=== PATIENT | male | born 1950 | race Caucasian/White ===

== ENCOUNTER → 2018-02-23 | Outpatient (CLI) | payer MEDICARE | END | disposition home or self-care (01) | LOC: RAH 13:00 | PROVIDERS: ATTEND Internal Medicine | DX: R92.8 Other abnormal and inconclusive findings on diagnostic imaging of breast (principal); Z85.3 Personal history of malignant neoplasm of breast | CPT/HCPCS: 77066 ==

== ENCOUNTER 2019-12-04 19:43 | Inpatient (IN) | payer MEDICARE ==
[~2019-12-04] VITALS: Ht 152.4 cm; Wt 55.5 kg
[2019-12-04 21:08] LABS: BASOPHILS % (AUTO) 0.5 % (0.0-5.0); HEMATOCRIT 33.4 % (42-54); LYMPHOCYTES % (AUTO) 11.3 % (21.0-51.0); MEAN CORPUSCULAR HEMOGLOBIN 31.4 pg (27.0-33.0); MEAN CORPUSCULAR HGB CONC 33.2 g/dL (32.0-36.0); MEAN CORPUSCULAR VOLUME 94.6 fL (79-99); MONOCYTES % (AUTO) 13.7 % (3.0-13.0); NEUTROPHILS % (AUTO) 72.8 % (40.0-77.0); PLATELET COUNT (AUTO) 187 K/uL (130-400); RED BLOOD CELL COUNT(AUTO) 3.53 MIL/uL (4.50-6.20); RED CELL DISTRIBUTION WIDTH 15.1 % (11.0-15.5); WHITE BLOOD COUNT (AUTO) 4.2 K/uL (4.8-10.8)
[2019-12-04 21:21] LABS: ALBUMIN 3.7 g/dL (3.5-5.0); BILIRUBIN,TOTAL 0.5 mg/dL (0.2-1.0); CREATININE 1.7 mg/dL (0.5-1.5); CRP QUANTITATIVE 120.3 mg/L (0.00-9.0); POTASSIUM 3.8 mmol/L (3.5-5.1); TOTAL PROTEIN, SERUM 8.6 g/dL (6.0-8.3)
[2019-12-04 21:27] LABS: PARTIAL THROMBOPLASTIN TIME 29.7 SEC (26.3-35.5); PROTHROMBIN TIME 10.8 SEC (9.6-11.6)
[2019-12-04 22:04] LABS: FERRITIN 195 ng/mL (30-400)
[2019-12-04] MEDS ORDERED: PANTOPRAZOLE 40 MG/VIAL ONE (22:29)
[2019-12-04] MEDS ORDERED: SODIUM CHLORIDE 0.9% 100 ML IV ONE (22:32)
[2019-12-04] MEDS ORDERED: ERGOCALCIFEROL (VITAMIN D2) 50,000 UNIT CAPSULE PO ONE (23:30)
[2019-12-04] MEDS ORDERED: LACTATED RINGERS 1000ML 1,000 ML IV SCH (23:30)
[2019-12-04] MEDS ORDERED: NITROGLYCERIN 0.4 MG SL TAB SL PRN (23:30)
[2019-12-04] MEDS ORDERED: ONDANSETRON HCL 4 MG/2 ML VIAL IV PRN (23:30)
[2019-12-04] MEDS ORDERED: DIPHENHYDRAMINE HCL 25 MG CAPSULE PO PRN (23:30)
[2019-12-04] MEDS ORDERED: ACETAMINOPHEN 325 MG TAB PO PRN ×2 (23:30)
[2019-12-04] MEDS: SODIUM CHLORIDE 0.9% 1000ML 1,000 ML IV SCH (23:45)
[2019-12-05] MEDS ORDERED: ERGOCALCIFEROL (VITAMIN D2) 50,000 UNIT CAPSULE ONE (00:43)
[2019-12-05 02:10] LABS: FERRITIN 173 ng/mL (30-400)
[2019-12-05 05:38] LABS: APPEARANCE,URINE Clear (CLEAR); BILIRUBIN,URINE Negative (NEGATIVE); COLOR,URINE Yellow (YELLOW); GLUCOSE, URINE (UA) Negative (NEGATIVE); KETONES,URINE Trace mg/dL (NEGATIVE); LEUKOCYTE ESTERASE ,URINE Large (NEGATIVE); NITRATE,URINE Positive (NEGATIVE); OCCULT BLOOD,URINE Trace (NEGATIVE); PH,URINE 5.5 (5.0-8.0); PROTEIN,URINE POS 1+ mg/dL (NEGATIVE); UROBILINOGEN,URINE 0.2 mg/dL (0.2-1.0)
[2019-12-05 05:49] LABS: BACTERIA,URINE Moderate /HPF (None Seen); RENAL EPITHELIAL CELLS,URINE Rare /HPF (None Seen); SQUAMOUS EPITHELIAL CELL,UR 0-2 /HPF (0-2); TRANSITIONAL EPI CELLS,URINE Rare /HPF (None Seen); WBC,URINE 26-50 /HPF (0-1)
[2019-12-05 06:30] LABS: ALBUMIN 3.5 g/dL (3.5-5.0); BILIRUBIN,TOTAL 0.5 mg/dL (0.2-1.0); CREATININE 1.6 mg/dL (0.5-1.5); CRP QUANTITATIVE 110.1 mg/L (0.00-9.0); POTASSIUM 3.1 mmol/L (3.5-5.1); TOTAL PROTEIN, SERUM 8.2 g/dL (6.0-8.3)
[2019-12-05] MEDS ORDERED: ACETAMINOPHEN 325 MG TAB ONE (06:54)
[2019-12-05 08:41] LABS: BASOPHILS % (AUTO) 0.2 % (0.0-5.0); HEMATOCRIT 28.5 % (42-54); LYMPHOCYTES % (AUTO) 6.8 % (21.0-51.0); MEAN CORPUSCULAR HEMOGLOBIN 31.5 pg (27.0-33.0); MEAN CORPUSCULAR VOLUME 92.5 fL (79-99); MONOCYTES % (AUTO) 7.6 % (3.0-13.0); NEUTROPHILS % (AUTO) 84.8 % (40.0-77.0); PLATELET COUNT (AUTO) 165 K/uL (130-400); RED BLOOD CELL COUNT(AUTO) 3.08 MIL/uL (4.50-6.20); WHITE BLOOD COUNT (AUTO) 4.9 K/uL (4.8-10.8)
[2019-12-05] MEDS: HEPARIN SODIUM 5000UNIT/ML 1ML VIAL SQ SCH ×3 (09:00→20:02)
[2019-12-05] MEDS: ASCORBIC ACID 500 MG TAB PO SCH (09:00)
[2019-12-05] MEDS: PANTOPRAZOLE SODIUM 40 MG TABLET.DR PO SCH (09:00)
[2019-12-05] MEDS: ACETYLCYSTEINE 600 MG CAPSULE PO SCH ×2 (09:00→20:02)
[2019-12-05] MEDS: ZINC SULFATE 220 CAPSULE PO SCH (09:00)
[2019-12-05] MEDS ORDERED: TRAM50TA4 PO (09:17)
[2019-12-05] MEDS ORDERED: LEVO250T59 PO (09:17)
[2019-12-05] MEDS ORDERED: PREG150C PO ×2 (09:17→09:18)
[2019-12-05] MEDS ORDERED: AEC81 PO (09:17)
[2019-12-05] MEDS ORDERED: ROSU5TAB12 PO (09:17)
[2019-12-05] MEDS ORDERED: FAMO20TA8 PO (09:17)
[2019-12-05] MEDS ORDERED: LEVO75TA10 PO (09:17)
[2019-12-05] MEDS ORDERED: COLE5PAC3 PO (09:17)
[2019-12-05] MEDS ORDERED: NEBI5TAB8 PO (09:17)
[2019-12-05] MEDS ORDERED: TRAMADOL HCL 50 MG TABLET PO PRN (09:30)
[2019-12-05] MEDS ORDERED: LEVOTHYROXINE 75 MCG TABLET PO SCH (09:30)
[2019-12-05 10:40] LABS: HEMATOCRIT 28.5 % (42-54)
[2019-12-05] MEDS ORDERED: LEVOTHYROXINE 25 MCG TABLET ONE (10:40)
[2019-12-05] MEDS ORDERED: ACETYLCYSTEINE 600 MG CAPSULE ONE (13:37)
[2019-12-05] MEDS ORDERED: ASCORBIC ACID 500 MG TAB ONE (13:37)
[2019-12-05] MEDS ORDERED: HEPARIN SODIUM 5000UNIT/ML 1ML VIAL ONE (13:37)
[2019-12-05] MEDS ORDERED: ZINC SULFATE 220 CAPSULE ONE (13:38)
[2019-12-05] MEDS: SODIUM CHLORIDE 0.9% 1000ML 1,000 ML IV SCH (14:03)
[2019-12-05 15:48] VITALS: BP 155/85
[2019-12-05 15:56] LABS: HEMATOCRIT 32.2 % (42-54)
[2019-12-05 16:26] VITALS: BP 155/71
[2019-12-05] MEDS ORDERED: POTASSIUM CHLORIDE 20MEQ/100ML 100 ML IV ONE (18:38)
[2019-12-05] MEDS ORDERED: POTASSIUM CHLORIDE 20MEQ/100ML 100 ML IV PRN (18:45)
[2019-12-05] MEDS ORDERED: POTASSIUM CHLORIDE 20 MEQ ERTAB PO PRN (18:45)
[2019-12-05] MEDS ORDERED: LIDOCAINE HCL-MPF 1% 2ML VIAL IV PRN (18:45)
[2019-12-05] MEDS: POTASSIUM CHLORIDE 10% ELIXIR 20 MEQ/15 ML UDCUP PO PRN ×2 (19:15→23:20)
[2019-12-05] MEDS ORDERED: ATORVASTATIN CALCIUM 40 MG TABLET ONE (19:29)
[2019-12-05 20:16] VITALS: BP 152/90
[2019-12-05] MEDS ORDERED: ATORVASTATIN CALCIUM 10 MG TABLET PO SCH (21:00)
[2019-12-05 23:15] VITALS: BP 124/85
[2019-12-06] MEDS: SODIUM CHLORIDE 0.9% 1000ML 1,000 ML IV SCH (03:22)
[2019-12-06 03:41] VITALS: BP 151/94
[2019-12-06 05:21] LABS: BASOPHILS % (AUTO) 0.7 % (0.0-5.0); EOSINOPHILS % (AUTO) 0.4 % (0.0-8.0); HEMATOCRIT 29.2 % (42-54); LYMPHOCYTES % (AUTO) 10.5 % (21.0-51.0); MEAN CORPUSCULAR HGB CONC 33.9 g/dL (32.0-36.0); MEAN CORPUSCULAR VOLUME 94.5 fL (79-99); MONOCYTES % (AUTO) 10.5 % (3.0-13.0); NEUTROPHILS % (AUTO) 77.2 % (40.0-77.0); PLATELET COUNT (AUTO) 189 K/uL (130-400); RED BLOOD CELL COUNT(AUTO) 3.09 MIL/uL (4.50-6.20); RED CELL DISTRIBUTION WIDTH 15.2 % (11.0-15.5); WHITE BLOOD COUNT (AUTO) 4.6 K/uL (4.8-10.8)
[2019-12-06 05:49] LABS: ALBUMIN 3.2 g/dL (3.5-5.0); BILIRUBIN,TOTAL 0.4 mg/dL (0.2-1.0); CREATININE 1.4 mg/dL (0.5-1.5); CRP QUANTITATIVE 133.5 mg/L (0.00-9.0); POTASSIUM 3.9 mmol/L (3.5-5.1); TOTAL PROTEIN, SERUM 7.5 g/dL (6.0-8.3)
[2019-12-06] MEDS: POTASSIUM CHLORIDE 10% ELIXIR 20 MEQ/15 ML UDCUP PO PRN (05:59)
--- NOTE | 2019-12-06 07:47 | NUR ---
[facility] ATTEMPTED CALL TO [facility], LEFT MESSAGE, PENDING CALL BACK FOR [place]
[2019-12-06 08:00] VITALS: BP 131/77
[2019-12-06] MEDS: PANTOPRAZOLE SODIUM 40 MG TABLET.DR PO SCH (08:21)
[2019-12-06] MEDS: ASCORBIC ACID 500 MG TAB PO SCH (08:21)
[2019-12-06] MEDS: ACETYLCYSTEINE 600 MG CAPSULE PO SCH (08:21)
[2019-12-06] MEDS: ZINC SULFATE 220 CAPSULE PO SCH (08:21)
[2019-12-06] MEDS: HEPARIN SODIUM 5000UNIT/ML 1ML VIAL SQ SCH (08:22)
--- NOTE | 2019-12-06 08:37 | NUR ---
SPOKE TO [facility]. LIVES W [facility] WHO WILL PROVIDE TRANSPORT MOSTLY INDEPENDENT HOME SAFE AND ACCESSIBLE, 2 STEPS UP TO HOME, BUT PT HAS NOT DIFFICULTY WITH STAIRS. USES A CANE AND A ROLLING WALKER, BUT IS OTHERWISE INDPENDENT.. PT HAD CANCER IN 2000, WAS ON SPECIAL TREATMENT PLAN AT [facility] CAUSE SOME NEUROPATHY, THAT IS REASON FOR IMPAIRED MOBILITY SPOUSE STATES THAT PT HAS BEEN SEFL [place]ARRANTIN[place] AND HAS ONLY GONE OUT OF HOUSE TWICE IN LAST TWO MONTH, DOES NOT UNDERSTAND HOW SHE CONTRACTED COVID. STATES HE IS ASYMPTOMATIC CM TO FOLLOW Addendum: 12/06/19 at 0844 by JASVIR DELVALLE RN CM Amended: Links added.
[2019-12-06] MEDS ORDERED: LEVO500T89 PO (10:27)
[2019-12-06] MEDS ORDERED: CEFTRIAXONE SODIUM 1 GM IVP SCH (10:53)
[2019-12-06] MEDS ORDERED: PREGABALIN 75 MG CAPSULE PO SCH (10:54)
[2019-12-06 12:00] VITALS: BP 125/83
[2019-12-07] MEDS ORDERED: NEBIVOLOL HCL 5 MG PO SCH (09:00)
== END 2019-12-06 14:00 | disposition home or self-care (01) | DRG 377 ==
LOC: EDH 19:43 → EDHIP 21:49 → 2AH 12-05 15:45
PROVIDERS: ADMIT Internal Medicine; ATTEND Internal Medicine
DX: K92.1 Melena (principal); U07.1 COVID-19; E87.1 Hypo-osmolality and hyponatremia; J98.11 Atelectasis; N39.0 Urinary tract infection, site not specified; N19 Unspecified kidney failure; E78.00 Pure hypercholesterolemia, unspecified; E78.5 Hyperlipidemia, unspecified; D50.0 Iron deficiency anemia secondary to blood loss (chronic); E03.9 Hypothyroidism, unspecified; I10 Essential (primary) hypertension; G62.9 Polyneuropathy, unspecified
CPT/HCPCS: 36415; 71045; 80053; 81001; 82150; 82270; 82550; 82728; 82948; 83605; 83615; 83690; 83930; 83935; 84145; 84443; 84484; 85014; 85018; 85025; 85378; 85610; 85730; 86140; 86850; 86900; 86901; 87040; 87077; 87088; 87186; 87426; 87486; 87581; 87633; 87798; 87804; 93005; 99291; C9113; G0378; J1644; J3480; J7030; Q0163

== ENCOUNTER → 2020-03-03 | Outpatient (CLI) | payer MEDICARE ==
[~2020-03-03] MED LIST: AEC81 PO; COLE5PAC3 PO; FAMO20TA8 PO; LEVO500T89 PO; LEVO75TA10 PO; NEBI5TAB8 PO; PREG150C PO; ROSU5TAB12 PO; TRAM50TA4 PO
== END | disposition home or self-care (01) ==
LOC: RAH 12:30
PROVIDERS: ATTEND Internal Medicine
DX: R92.2 Inconclusive mammogram (principal); Z85.3 Personal history of malignant neoplasm of breast
CPT/HCPCS: 77066

== ENCOUNTER → 2021-03-10 | Outpatient (CLI) | payer MEDICARE ==
[~2021-03-10] MED LIST changes: -LEVO500T89 PO; +LEVO500T90 PO
== END | disposition home or self-care (01) ==
LOC: RAH 11:11
PROVIDERS: ATTEND Internal Medicine
DX: R92.2 Inconclusive mammogram (principal); Z85.3 Personal history of malignant neoplasm of breast; Z98.890 Other specified postprocedural states
CPT/HCPCS: 77066

== ENCOUNTER 2021-03-19 22:25 | Inpatient (IN) | payer MEDICARE ==
[~2021-03-19] VITALS: Ht 152.4 cm; Wt 59.4 kg
[2021-03-19] MEDS ORDERED: MORPHINE 2 MG SYG ONE (23:24)
[2021-03-19 23:42] LABS: HEMATOCRIT 32.9 % (36-48); MEAN CORPUSCULAR HEMOGLOBIN 33.2 pg (27.0-33.0); MEAN CORPUSCULAR HGB CONC 34.3 g/dL (32.0-36.0); MEAN CORPUSCULAR VOLUME 96.8 fL (79-99); PLATELET COUNT (AUTO) 231 K/uL (130-400); RED CELL DISTRIBUTION WIDTH 18.6 % (11.0-15.5); WHITE BLOOD COUNT (AUTO) 7.5 K/uL (4.8-10.8)
[2021-03-19 23:44] LABS: APPEARANCE,URINE Clear (CLEAR); BILIRUBIN,URINE Negative (NEGATIVE); COLOR,URINE Yellow (YELLOW); GLUCOSE, URINE (UA) Negative (NEGATIVE); KETONES,URINE Negative (NEGATIVE); LEUKOCYTE ESTERASE ,URINE Trace (NEGATIVE); NITRATE,URINE Negative (NEGATIVE); OCCULT BLOOD,URINE Negative (NEGATIVE); PH,URINE 7.5 (5.0-8.0); PROTEIN,URINE Trace mg/dL (NEGATIVE); UROBILINOGEN,URINE 0.2 mg/dL (0.2-1.0)
[2021-03-19 23:45] LABS: BASOPHILS % (AUTO) 1.2 % (0.0-5.0); EOSINOPHILS % (AUTO) 0.5 % (0.0-8.0); LYMPHOCYTES % (AUTO) 13.7 % (21.0-51.0); MONOCYTES % (AUTO) 8.1 % (3.0-13.0); NEUTROPHILS % (AUTO) 76.1 % (40.0-77.0)
[2021-03-19 23:55] LABS: ALBUMIN 4.1 g/dL (3.5-5.0); BILIRUBIN,TOTAL 0.4 mg/dL (0.2-1.0); CREATININE 1.3 mg/dL (0.5-1.5); POTASSIUM 3.5 mmol/L (3.5-5.1)
[2021-03-19 23:57] LABS: BACTERIA,URINE None Seen /HPF (None Seen); RBC,URINE None Seen /HPF (0-1); WBC,URINE None Seen /HPF (0-1)
[2021-03-20] VITALS (29 sets, daily range): BP systolic 92–143; BP diastolic 57–108
[2021-03-20] MEDS ORDERED: MORPHINE 2 MG SYG IVP ONE ×2
[2021-03-20] MEDS ORDERED: ACETAMINOPHEN 325 MG TAB PO PRN ×2 (02:30)
[2021-03-20] MEDS ORDERED: MORPHINE 4 MG SYG IVP PRN (02:30)
[2021-03-20] MEDS: 0.9%NACL 1000ML 1,000 ML IV SCH ×4 (05:50→20:17)
[2021-03-20] MEDS: ONDANSETRON 4MG INJ IVP PRN ×3 (06:42→18:55)
[2021-03-20 07:27] LABS: POTASSIUM 3.7 mmol/L (3.5-5.1)
[2021-03-20] MEDS ORDERED: HYDR12.54 PO ×2 (08:23→08:24)
[2021-03-20] MEDS ORDERED: FERR-72 PO (08:23)
[2021-03-20 08:40] LABS: CREATININE 1.2 mg/dL (0.5-1.5)
[2021-03-20] MEDS ORDERED: DIPHENHYDRAMINE HCL 25 MG CAPSULE PO PRN (09:00)
[2021-03-20] MEDS ORDERED: POTASSIUM CHLORIDE 10% ELIXIR 20 MEQ/15 ML UDCUP PO PRN ×2 (09:00→09:30)
[2021-03-20] MEDS ORDERED: CLONIDINE HCL 0.1 MG TABLET PO PRN (09:00)
[2021-03-20] MEDS ORDERED: HYDRALAZINE 20MG/ML VIAL IV PRN (09:00)
[2021-03-20] MEDS: FAMOTIDINE 20MG VIAL IV SCH (09:00)
[2021-03-20] MEDS ORDERED: DiphenhydrAMINE HCL 50 MG/ML VIAL IV PRN (09:00)
[2021-03-20] MEDS: FERROUS SULFATE 325 MG TABLET.DR PO SCH ×2 (09:00→20:16)
[2021-03-20] MEDS ORDERED: KCL 20 MEQ ERTAB PO PRN ×2 (09:00→09:30)
[2021-03-20] MEDS ORDERED: POTASSIUM CHLORIDE 20MEQ/100ML 100 ML IV PRN ×4 (09:00→09:30)
[2021-03-20] MEDS ORDERED: ACETAMINOPHEN WITH CODEINE 1 TAB TAB PO PRN ×2 (09:00)
[2021-03-20] MEDS ORDERED: LACTULOSE 20 GM/30 ML UDCUP PO PRN (09:00)
[2021-03-20] MEDS ORDERED: MAG/ALUM/SIMETH 30 ML UDCUP PO PRN (09:00)
[2021-03-20] MEDS: ENOXAPARIN SODIUM 30 MG/0.3 ML SQ SCH (09:00)
[2021-03-20] MEDS ORDERED: LIDOCAINE HCL-MPF 1% 2ML VIAL IV PRN ×4 (09:00→09:30)
[2021-03-20] MEDS ORDERED: MORPHINE 4 MG SYG ONE (09:10)
[2021-03-20] MEDS ORDERED: ONDANSETRON 4MG INJ IVP PRN (09:30)
[2021-03-20 09:45] LABS: INR 1.07 (0.85-1.15); PROTHROMBIN TIME 11.6 SEC (9.6-11.6)
[2021-03-20] MEDS ORDERED: LACTATED RINGERS 1000ML 0 ML IV ONE (10:51)
[2021-03-20] MEDS ORDERED: CLINDAMYCIN IVPB 900MG/50ML 50 ML IV ONE (10:55)
[2021-03-20] MEDS ORDERED: PROPOFOL 10 MG/ML 20ML VIAL IV ONE (11:05)
[2021-03-20] MEDS ORDERED: SUCCINYLCHOLINE CHLORIDE 20 MG/ML 10 ML VIAL ONE (11:05)
[2021-03-20] MEDS ORDERED: LIDOCAINE PF 100MG/5ML (2%) SYRINGE 5ML ONE (11:05)
[2021-03-20] MEDS ORDERED: ROPIVACAINE 0.5% 5MG/ML 30ML IJ ONE ×2 (11:09→11:11)
[2021-03-20] MEDS ORDERED: 0.9%NACL 10ML VIAL ONE (11:11)
[2021-03-20] MEDS ORDERED: EPHEDRINE SULFATE 50 MG/ML AMPULE ONE (11:27)
[2021-03-20] MEDS: METOCLOPRAMIDE 10 MG/2 ML VIAL IVP SCH ×3 (11:30→20:16)
[2021-03-20] MEDS ORDERED: MEPERIDINE-PF 25 MG/ML SYG ONE (13:32)
[2021-03-20] MEDS: MORPHINE 4 MG SYG IV PRN (18:54)
[2021-03-20] MEDS: CLINDAMYCIN IVPB 600MG/50ML 50 ML IV SCH (20:16)
[2021-03-20] MEDS: ATORVASTATIN 10 MG TABLET PO SCH (20:16)
[2021-03-20] MEDS: PREGABALIN 75 MG CAPSULE PO SCH (20:16)
[2021-03-21] VITALS (7 sets, daily range): BP systolic 98–146; BP diastolic 52–87
[2021-03-21] MEDS: ACETAMINOPHEN WITH CODEINE 1 TAB TAB PO PRN ×2 (02:39→08:48)
[2021-03-21] MEDS: CLINDAMYCIN IVPB 600MG/50ML 50 ML IV SCH (03:57)
[2021-03-21 05:30] LABS: MEAN CORPUSCULAR HGB CONC 32.5 g/dL (32.0-36.0); MEAN CORPUSCULAR VOLUME 104.7 fL (79-99); PLATELET COUNT (AUTO) 133 K/uL (130-400); RED BLOOD CELL COUNT(AUTO) 1.91 MIL/uL (4.00-5.50); RED CELL DISTRIBUTION WIDTH 19.6 % (11.0-15.5); WHITE BLOOD COUNT (AUTO) 6.1 K/uL (4.8-10.8)
[2021-03-21 05:34] LABS: CREATININE 1.3 mg/dL (0.5-1.5); POTASSIUM 3.8 mmol/L (3.5-5.1)
[2021-03-21] MEDS: METOCLOPRAMIDE 10 MG/2 ML VIAL IVP SCH ×2 (06:09→12:36)
[2021-03-21] MEDS ORDERED: LEVOTHYROXINE 75 MCG TABLET PO SCH (06:30)
[2021-03-21] MEDS: FERROUS SULFATE 325 MG TABLET.DR PO SCH ×2 (08:47→20:32)
[2021-03-21] MEDS: FAMOTIDINE 20MG VIAL IV SCH (08:48)
[2021-03-21] MEDS: ENOXAPARIN SODIUM 30 MG/0.3 ML SQ SCH (09:00)
[2021-03-21] MEDS: 0.9%NACL 1000ML 1,000 ML IV SCH ×2 (10:30→18:30)
[2021-03-21] MEDS: METOCLOPRAMIDE 5 MG TABLET PO SCH ×2 (16:40→20:32)
[2021-03-21] MEDS: PANTOPRAZOLE 40 MG TAB DR PO SCH (20:32)
[2021-03-21] MEDS: ATORVASTATIN 10 MG TABLET PO SCH (20:32)
[2021-03-21] MEDS: PREGABALIN 75 MG CAPSULE PO SCH (20:32)
[2021-03-22] MEDS: 0.9%NACL 1000ML 1,000 ML IV SCH ×3 (02:30→14:57)
[2021-03-22 04:54] VITALS: BP 173/98
[2021-03-22 05:24] LABS: HEMATOCRIT 32.4 % (36-48); MEAN CORPUSCULAR HGB CONC 33.3 g/dL (32.0-36.0); MEAN CORPUSCULAR VOLUME 99.1 fL (79-99); RED BLOOD CELL COUNT(AUTO) 3.27 MIL/uL (4.00-5.50); RED CELL DISTRIBUTION WIDTH 21.2 % (11.0-15.5); WHITE BLOOD COUNT (AUTO) 8.4 K/uL (4.8-10.8)
[2021-03-22 05:37] LABS: POTASSIUM 3.6 mmol/L (3.5-5.1)
[2021-03-22] MEDS: METOCLOPRAMIDE 5 MG TABLET PO SCH ×4 (05:46→22:20)
[2021-03-22] MEDS ORDERED: LEVOTHYROXINE 75 MCG TABLET PO SCH (06:30)
[2021-03-22] MEDS: MORPHINE 4 MG SYG IV PRN (06:49)
[2021-03-22 07:15] VITALS: BP 117/84
[2021-03-22] MEDS: PANTOPRAZOLE 40 MG TAB DR PO SCH ×2 (08:52→22:20)
[2021-03-22] MEDS: FERROUS SULFATE 325 MG TABLET.DR PO SCH ×2 (08:52→22:20)
[2021-03-22 11:55] VITALS: BP 133/85
[2021-03-22] MEDS ORDERED: ACET1TAB25 PO (14:04)
[2021-03-22] MEDS ORDERED: APIX5TAB PO (14:06)
[2021-03-22 15:56] VITALS: BP 167/104
[2021-03-22] MEDS: ACETAMINOPHEN WITH CODEINE 1 TAB TAB PO PRN ×2 (16:30→22:23)
[2021-03-22] MEDS: ATORVASTATIN 10 MG TABLET PO SCH (22:19)
== END 2021-03-22 23:54 | DRG 481 ==
LOC: EDH 22:25 → EDHIP 03-20 01:09 → 3AH 03-20 08:54
PROVIDERS: ADMIT Internal Medicine; ATTEND Internal Medicine
PROC: 0QS706Z Reposition Left Upper Femur with Intramedullary Internal Fixation Device, Open Approach (ICD-10-PCS; principal; 2021-03-20 11:11)
PROC: 30233N1 Transfusion of Nonautologous Red Blood Cells into Peripheral Vein, Percutaneous Approach (ICD-10-PCS; 2021-03-21)
DX: S72.142A Displaced intertrochanteric fracture of left femur, initial encounter for closed fracture (principal); E87.1 Hypo-osmolality and hyponatremia; G62.0 Drug-induced polyneuropathy; F11.21 Opioid dependence, in remission; E03.9 Hypothyroidism, unspecified; D50.9 Iron deficiency anemia, unspecified; K21.9 Gastro-esophageal reflux disease without esophagitis; E86.1 Hypovolemia; K58.9 Irritable bowel syndrome, unspecified; F03.90 Unspecified dementia, unspecified severity, without behavioral disturbance, psychotic disturbance, mood disturbance, and anxiety; I70.0 Atherosclerosis of aorta; N18.30 Chronic kidney disease, stage 3 unspecified; I12.9 Hypertensive chronic kidney disease with stage 1 through stage 4 chronic kidney disease, or unspecified chronic kidney disease; N39.46 Mixed incontinence; Z20.822 Contact with and (suspected) exposure to COVID-19; H04.129 Dry eye syndrome of unspecified lacrimal gland; H35.033 Hypertensive retinopathy, bilateral; I65.21 Occlusion and stenosis of right carotid artery; M41.9 Scoliosis, unspecified; N20.0 Calculus of kidney; H10.10 Acute atopic conjunctivitis, unspecified eye; T45.1X5A Adverse effect of antineoplastic and immunosuppressive drugs, initial encounter; W01.0XXA Fall on same level from slipping, tripping and stumbling without subsequent striking against object, initial encounter; Y93.89 Activity, other specified; Y92.89 Other specified places as the place of occurrence of the external cause; Y99.8 Other external cause status; Z85.3 Personal history of malignant neoplasm of breast; Z79.01 Long term (current) use of anticoagulants; Z79.82 Long term (current) use of aspirin; Z79.899 Other long term (current) drug therapy; Z85.42 Personal history of malignant neoplasm of other parts of uterus; Z87.442 Personal history of urinary calculi; Z87.440 Personal history of urinary (tract) infections; Z87.19 Personal history of other diseases of the digestive system; Z88.0 Allergy status to penicillin; Z90.710 Acquired absence of both cervix and uterus; Z86.16 Personal history of COVID-19
CPT/HCPCS: 36415; 36430; 71045; 73502; 73503; 80048; 80053; 81001; 85025; 85027; 85610; 85730; 86850; 86900; 86901; 86923; 87635; 93005; 97039; C1769; C9803; G0378; J0330; J1650; J2001; J2175; J2270; J2405; J2704; J2765; J2795; J3490; J7030; J7120; P9016

== ENCOUNTER → 2021-07-20 | Outpatient (CLI) | payer MEDICARE ==
[~2021-07-20] MED LIST changes: +ACET-2079 PO; -AEC81 PO; +APIX5TAB PO; -COLE5PAC3 PO; -FAMO20TA8 PO; +FERR-72 PO; +HYDR12.54 PO; -LEVO500T90 PO; -NEBI5TAB8 PO; -PREG150C PO; -TRAM50TA4 PO
== END | disposition home or self-care (01) ==
LOC: SHCH 10:32
PROVIDERS: ATTEND Internal Medicine Cardiovascular Disease
DX: I51.7 Cardiomegaly (principal)
CPT/HCPCS: 93306

== ENCOUNTER → 2022-03-19 | Outpatient (CLI) | payer MEDICARE | END | disposition home or self-care (01) | LOC: RAH 13:59 | PROVIDERS: ATTEND Internal Medicine | DX: R22.2 Localized swelling, mass and lump, trunk (principal) | CPT/HCPCS: 76604 ==

== ENCOUNTER → 2022-04-07 | Outpatient (CLI) | payer MEDICARE | END | disposition home or self-care (01) | LOC: RAH 13:00 | PROVIDERS: ATTEND Internal Medicine | DX: R92.8 Other abnormal and inconclusive findings on diagnostic imaging of breast (principal); Z85.3 Personal history of malignant neoplasm of breast | CPT/HCPCS: 77066 ==

== ENCOUNTER 2022-06-18 06:48 | Day surgery (SDC) | payer MEDICARE ==
[2022-06-14 10:14] LABS: BASOPHILS % (AUTO) 0.9 % (0.0-5.0); EOSINOPHILS % (AUTO) 1.6 % (0.0-8.0); HEMATOCRIT 39.7 % (36-48); LYMPHOCYTES % (AUTO) 18.3 % (21.0-51.0); MEAN CORPUSCULAR HEMOGLOBIN 31.1 pg (27.0-33.0); MEAN CORPUSCULAR HGB CONC 31.7 g/dL (32.0-36.0); MONOCYTES % (AUTO) 6.3 % (3.0-13.0); NEUTROPHILS % (AUTO) 72.5 % (40.0-77.0); PLATELET COUNT (AUTO) 327 K/uL (130-400); RED BLOOD CELL COUNT(AUTO) 4.05 MIL/uL (4.00-5.50); RED CELL DISTRIBUTION WIDTH 13.5 % (11.0-15.5); WHITE BLOOD COUNT (AUTO) 7.5 K/uL (4.8-10.8)
[2022-06-14 10:34] LABS: INR 0.94 (0.85-1.15); PROTHROMBIN TIME 10.3 SEC (9.6-11.6)
[2022-06-14 10:36] LABS: PARTIAL THROMBOPLASTIN TIME 36.2 SEC (26.3-35.5)
[2022-06-14 10:37] LABS: ALBUMIN 3.9 g/dL (3.5-5.0); POTASSIUM 4.2 mmol/L (3.5-5.1); TOTAL PROTEIN, SERUM 8.7 g/dL (6.0-8.3)
[2022-06-14 11:05] VITALS: BP 143/83
[2022-06-18] VITALS (17 sets, daily range): BP systolic 128–164; BP diastolic 73–102
[~2022-06-18] VITALS: Ht 152.4 cm; Wt 52.4 kg
[~2022-06-18 06:48] MED LIST changes: -ACET-2079 PO; -APIX5TAB PO; -FERR-72 PO; -HYDR12.54 PO; +LEVO-171 PO; -LEVO75TA10 PO; +PANT20TA18 PO
[2022-06-18] MEDS ORDERED: CEFAZOLIN SODIUM 2 GM VIAL ONE (07:29)
[2022-06-18] MEDS ORDERED: LACTATED RINGERS 1000ML 1,000 ML IV ONE (07:29)
[2022-06-18] MEDS ORDERED: PROPOFOL 10 MG/ML 20ML VIAL IV ONE (08:10)
[2022-06-18] MEDS ORDERED: ROCURONIUM 10MG/1ML SYR 10 MG/ML ML ONE (08:10)
[2022-06-18] MEDS ORDERED: ONDANSETRON 4MG INJ ONE (08:10)
[2022-06-18] MEDS ORDERED: MIDAZOLAM HCL 1 MG/ML 2ML VIAL ONE (08:10)
[2022-06-18] MEDS ORDERED: FENTANYL CITRATE PF 50 MCG/1 ML 2ML VIAL ONE ×2 (08:11→09:24)
[2022-06-18] MEDS ORDERED: BUPIVACAINE/PF 0.5% 30ML VIAL ONE (08:11)
[2022-06-18] MEDS ORDERED: LIDOCAINE HCL MPF 1% 5ML VIAL ONE (08:12)
[2022-06-18] MEDS ORDERED: LOTE5OS OD (08:14)
[2022-06-18] MEDS ORDERED: CLINDAMYCIN 900MG/6ML INJ IJ ONE (08:55)
[2022-06-18] MEDS ORDERED: CLINDAMYCIN 900MG/6ML INJ ONE (08:59)
[2022-06-18] MEDS ORDERED: GLYCOPYRROLATE 1 MG/5 ML SYRINGE ONE (09:20)
[2022-06-18] MEDS ORDERED: NEOSTIGMINE 5MG/5ML SYR IV ONE (09:20)
[2022-06-18] MEDS ORDERED: LABETALOL 20MG SYG IV ONE (09:51)
== END 2022-06-18 11:45 | disposition home or self-care (01) ==
LOC: DAH 06:48
PROVIDERS: ATTEND Student in an Organized Health Care Education/Training Program
DX: R22.2 Localized swelling, mass and lump, trunk (principal); Z20.822 Contact with and (suspected) exposure to COVID-19; D17.1 Benign lipomatous neoplasm of skin and subcutaneous tissue of trunk; D48.5 Neoplasm of uncertain behavior of skin; K21.9 Gastro-esophageal reflux disease without esophagitis; I12.9 Hypertensive chronic kidney disease with stage 1 through stage 4 chronic kidney disease, or unspecified chronic kidney disease; N18.9 Chronic kidney disease, unspecified; D64.9 Anemia, unspecified; E78.5 Hyperlipidemia, unspecified; Z79.01 Long term (current) use of anticoagulants; Z88.0 Allergy status to penicillin; Z98.890 Other specified postprocedural states; Z90.710 Acquired absence of both cervix and uterus; Z79.82 Long term (current) use of aspirin; Z79.899 Other long term (current) drug therapy; Z90.721 Acquired absence of ovaries, unilateral
CPT/HCPCS: 80053; 85025; 85610; 85730; 87426; 36415; 71045; 93005; 21933; A6260; A4663; A4452; J7120; J3010 ×2; J3490 ×3; J2710; J2250; J2704; J2405; J0690; G0168; A4215; A4223; A4222; A4221

== ENCOUNTER → 2023-04-08 | Outpatient (CLI) | payer MEDICARE ==
[~2023-04-08] MED LIST changes: +LOTE5OS OD
== END | disposition home or self-care (01) ==
LOC: RAH 10:00
PROVIDERS: ATTEND Internal Medicine
DX: R92.323 Mammographic fibroglandular density, bilateral breasts (principal); R92.2 Inconclusive mammogram; Z85.3 Personal history of malignant neoplasm of breast; Z98.890 Other specified postprocedural states
CPT/HCPCS: 77066

== ENCOUNTER → 2024-04-09 | Outpatient (CLI) | payer MEDICARE ==
[~2024-04-09] MED LIST changes: -ROSU5TAB12 PO; +ROSU5TAB51 PO
--- NOTE | 2024-04-09 10:30 | HMCIMG ---
PROCEDURE: MAMMO DX BILATERAL HISTORY: Breast cancer COMPARISON: 04/08/2023 TECHNIQUE: Bilateral digital diagnostic mammogram with CAD was performed. No additional views were obtained. FINDINGS: Post left breast lumpectomy changes are seen. Dystrophic calcifications are seen in both breasts. Vascular calcifications are seen. The breasts are heterogeneously dense, which may obscure small masses. There is no evidence of a dominant mass, or suspicious microcalcification. There is no evidence of nipple retraction or skin thickening. IMPRESSION: 1. Stable mammogram. BI-RADS: CATEGORY 2: BENIGN FINDINGS Recommend monthly self breast exam as well as annual clinical examination. A negative x-ray should not delay biopsy if a dominant or clinically suspicious mass is present, since 8-10% of cancers are not identified by mammography. Dense breasts particularly, may obscure an underlying neoplasm. Some of these may be detected clinically and therefore, clinical examination is an essential part of breast evaluation.
== END | disposition home or self-care (01) ==
LOC: RAH 09:50
PROVIDERS: ATTEND Internal Medicine
DX: N64.89 Other specified disorders of breast (principal); R92.333 Mammographic heterogeneous density, bilateral breasts; Z85.3 Personal history of malignant neoplasm of breast
CPT/HCPCS: 77066